=== PATIENT | male | born 1985 | race Hispanic/Latino ===

== ENCOUNTER 2017-10-28 00:57 | Inpatient (IN) | payer BC ==
[2017-10-28] MEDS ORDERED: NA CHLORIDE 0.9% 1,000 ML ONE ×2 (01:18→17:20)
[2017-10-28] MEDS ORDERED: PIPER/TAZO/NS 3.375gm 3.375 GM/100 ML BAG ONE ×2 (01:26→05:50)
[2017-10-28] MEDS ORDERED: PROMETHAZINE 25 MG/ML VIAL ONE (01:26)
[2017-10-28] MEDS ORDERED: FAMOTIDINE 20 MG/2 ML VIAL IV ONE ×2 (01:26→23:40)
[2017-10-28 01:35] LABS: Absolute Lymphocytes (CBC) 2.9 K/uL (0.7-4.9); Absolute Monocytes 0.6 K/uL (0.1-1.3); Absolute Neutrophil 7.6 K/uL (1.8-8.0); Basophils % 0.3 % (0-1.3); Eosinophils % 2.1 % (0-4.4); Lymphocytes % 25.7 % (15.3-44.8); MCH 28.5 pg (27.0-35.0); MCV 84.8 fL (80-100); Monocytes % 5.1 % (3.3-12.3); RBC Red Blood Cell Count 5.43 M/uL (4.33-5.43)
[2017-10-28] MEDS ORDERED: FENTANYL CITR 100 MCG/2 ML ONE (01:36)
[2017-10-28 01:46] LABS: Bicarbonate 26 mEq/L (21-31); Glucose Level 109 mg/dL (65-120); Lipase 20 U/L (22-51); Potassium 3.7 mEq/L (3.6-5.0); Sodium Level 134 mEq/L (135-145)
[2017-10-28 01:51] LABS: ALT/SGPT 26 IU/L (10-60); AST/SGOT 32 IU/L (10-42); Albumin 4.6 g/dL (3.2-5.5); Alkaline Phosphatase 70 IU/L (42-121); Amylase Level 34 U/L (28-100); BUN Blood Urea Nitrogen 21 mg/dL (6-20); Bilirubin Direct < 0.1 mg/dL (0-0.2); Protein, Total 7.9 g/dL (6.0-8.3)
--- NOTE | 2017-10-28 04:14 | ER ---
Nurse's Notes [facility] Name: Michael Henao Age: 32 yrs Sex: Male : 1985 Arrival Date: 10/28/2017 Time: 00:59 Bed 14 Private MD: Jose Guzmán R Diagnosis: Abdominal tenderness;Cholelithiasis;Cholecystitis Presentation: 10/28 01:20 Presenting complaint: Patient states: upper abd pain X1 day. pt denies vomiting. pt c/o ak1 nausea. Transition of care: patient was not received from another setting of care. Onset of symptoms was October 28, 2017. Initial Sepsis Screen: Does the patient meet any 2 criteria? No. Patient's initial sepsis screen is negative. Does the patient have a suspected source of infection? No. Patient's initial sepsis screen is negative. Note pt sent to restroom for UA unable to urinate at this time. Care prior to arrival: None. 01:20 Method Of Arrival: Ambulatory ak1 01:20 Acuity: AD 3 ak1 Triage Assessment: 01:20 General: Appears in no apparent distress. Behavior is calm, cooperative, texting and ak1 watching TV. Pain: Complains of pain in abdomen and left upper quadrant and right upper quadrant and epigastric area. EENT: No signs and/or symptoms were reported regarding the EENT system. Neuro: No deficits noted. Cardiovascular: No deficits noted. Respiratory: No deficits noted. GI: Abdomen is round Reports upper abdominal pain, nausea. : No signs and/or symptoms were reported regarding the genitourinary system. Derm: No signs and/or symptoms reported regarding the dermatologic system. Musculoskeletal: No signs and/or symptoms reported regarding the musculoskeletal system. Historical: - Allergies: 01:33 No Known Allergies; ak1 - Home Meds: 01:33 None [Active]; ak1 - PMHx: 01:33 None; ak1 - PSHx: 01:33 None; ak1 - Immunization history:: Adult Immunizations unknown. - Social history:: Smoking status: unknown. - Family history:: not pertinent. Screenin:23 Abuse screen: Denies threats or abuse. Denies injuries from another. Nutritional ak1 screening: No deficits noted. Tuberculosis screening: No symptoms or risk factors identified. Fall Risk None identified. Assessment: 01:30 GI: Bowel sounds present X 4 quads. Abdomen is tender to palpation in epigastric area, bs1 right upper quadrant and left upper quadrant. 03:30 Reassessment: Patient appears in no apparent distress at this time. Patient and/or bs1 family updated on plan of care and expected duration. Pain level reassessed. Patient is alert, oriented x 3, equal unlabored respirations, skin warm/dry/pink. Patient states feeling better. 05:03 Reassessment: Patient appears in no apparent distress at this time. Patient and/or bs1 family updated on plan of care and expected duration. Pain level reassessed. Patient is alert, oriented x 3, equal unlabored respirations, skin warm/dry/pink. Patient being admitted to 2nd floor, for Cholecystitis/cholelithiasis, consults with Dr Sethi, discussed with patient. Vital Signs: 01:20 BP 130 / 82; Pulse 60; Resp 16; Temp 98.5; Pulse Ox 99% on R/A; Weight 81.65 kg; Height ak1 5 ft. 8 in. (172.72 cm); Pain 5/10; 02:20 BP 116 / 77 (art line/); Pulse 61; Pulse Ox 96% on R/A; bs1 03:20 BP 122 / 84; Pulse 54; Resp 15 S; Pulse Ox 98% on R/A; bs1 04:20 BP 126 / 83; Pulse 60; Resp 16; Temp 98(O); Pulse Ox 100% on R/A; Pain 0/10; bs1 01:20 Body Mass Index 27.37 (81.65 kg, 172.72 cm) ak1 ED Course: 00:59 Patient arrived in ED. am2 00:59 Jose Guzmán MD is Private Physician. am2 01:03 Benji Ahn MD is Attending Physician. vandana 01:14 Rocio Patel, CAROLANN is Primary Nurse. bs1 01:20 No provider procedures requiring assistance completed. Initial lab(s) drawn, by me, ak1 sent to lab. Inserted saline lock: 20 gauge in right antecubital area, using aseptic technique. Blood collected. 01:20 Arm band placed on Patient placed in an exam room, on a stretcher, on pulse oximetry, ak1 Patient notified of wait time. 01:21 Triage completed. ak1 01:23 Patient has correct armband on for positive identification. Bed in low position. Call ak1 light in reach. Side rails up X 1. Pulse ox on. NIBP on. 03:06 CT Abd/Pelvis - W/Contrast In Process Unspecified. EDTX 04:13 Jose Guzmán MD is Hospitalizing Provider. [facility] 05:04 Patient admitted, IV remains in place. intact. bs1 Administered Medications: 01:20 Drug: NS 0.9% 1000 ml Route: IV; Rate: 1 bolus; Site: right antecubital; ak1 01:31 Drug: Pepcid 20 mg Route: IVP; Site: right antecubital; ak1 01:43 Follow up: Response: No adverse reaction bs1 01:31 Not Given (medication not found new orders from ERP): Zofran 4 mg IVP once; over 2 ak1 minutes 01:32 Drug: Phenergan 12.5 mg Route: IVP; Site: right antecubital; ak1 01:42 Follow up: Response: No adverse reaction bs1 01:35 Drug: Zosyn 3.375 grams Route: IVPB; Infused Over: 60 mins; Site: right antecubital; bs1 06:36 Follow up: IV Status: Completed infusion bs1 01:39 Drug: fentaNYL (PF) 50 mcg Route: IVP; Site: right antecubital; ak1 01:43 Follow up: Response: No adverse reaction bs1 Outcome: 04:14 Decision to Hospitalize by Provider. [facility] 04:58 Condition: stable bs1 05:04 Admitted to Med/surg accompanied by nurse, via wheelchair, room 220, with chart, Report bs1 called to Sneha/Tanya VUONG 05:04 Instructed on the need for admit. 05:05 Patient left the ED. bs1 Signatures: Dispatcher [employer] EDBenji Varghese MD MD cha Krenek, Amber RN RN ak1 Annabelle Harley Brittany, RN RN bs1
--- NOTE | 2017-10-28 04:15 | EDPHYS ---
Physician Documentation [facility] Name: Michael Henao Age: 32 yrs Sex: Male : 1985 Arrival Date: 10/28/2017 Time: 00:59 Bed 14 Private MD: Jose Guzmán R ED Physician Benji Ahn HPI: 10/28 01:10 This 32 yrs old Male presents to ER via Unassigned with complaints of vandana Abdominal Pain. 01:10 The patient presents with abdominal pain in the epigastric area, in the upper abdomen. vandana Onset: The symptoms/episode began/occurred just prior to arrival. The symptoms do not radiate. Associated signs and symptoms: none. The symptoms are described as constant, crampy. Severity of pain: At its worst the pain was moderate in the emergency department the pain is unchanged. The patient has not experienced similar symptoms in the past. Historical: - Allergies: 01:33 No Known Allergies; ak1 - Home Meds: 01:33 None [Active]; ak1 - PMHx: :33 None; ak1 - PSHx: 01:33 None; ak1 - Immunization history:: Adult Immunizations unknown. - Social history:: Smoking status: unknown. - Family history:: not pertinent. ROS: 01:10 Constitutional: Negative for fever, chills, and weight loss, Eyes: Negative for injury, vandana pain, redness, and discharge, ENT: Negative for injury, pain, and discharge, Neck: Negative for injury, pain, and swelling, Cardiovascular: Negative for chest pain, palpitations, and edema, Respiratory: Negative for shortness of breath, cough, wheezing, and pleuritic chest pain, Back: Negative for injury and pain, : Negative for injury, bleeding, discharge, and swelling, MS/Extremity: Negative for injury and deformity, Skin: Negative for injury, rash, and discoloration, Neuro: Negative for headache, weakness, numbness, tingling, and seizure, Psych: Negative for depression, anxiety, suicide ideation, homicidal ideation, and hallucinations, Allergy/Immunology: Negative for hives, rash, and allergies, Endocrine: Negative for neck swelling, polydipsia, polyuria, polyphagia, and marked weight changes, Hematologic/Lymphatic: Negative for swollen nodes, abnormal bleeding, and unusual bruising. 01:10 Abdomen/GI: Positive for abdominal pain, of the epigastric area, right upper quadrant and left upper quadrant. Exam: 01:10 Constitutional: This is a well developed, well nourished patient who is awake, alert, vandana and in no acute distress. Head/Face: Normocephalic, atraumatic. Eyes: Pupils equal round and reactive to light, extra-ocular motions intact. Lids and lashes normal. Conjunctiva and sclera are non-icteric and not injected. Cornea within normal limits. Periorbital areas with no swelling, redness, or edema. ENT: Nares patent. No nasal discharge, no septal abnormalities noted. Tympanic membranes are normal and external auditory canals are clear. Oropharynx with no redness, swelling, or masses, exudates, or evidence of obstruction, uvula midline. Mucous membranes moist. Neck: Trachea midline, no thyromegaly or masses palpated, and no cervical lymphadenopathy. Supple, full range of motion without nuchal rigidity, or vertebral point tenderness. No Meningismus. Chest/axilla: Normal chest wall appearance and motion. Nontender with no deformity. No lesions are appreciated. Cardiovascular: Regular rate and rhythm with a normal S1 and S2. No gallops, murmurs, or rubs. Normal PMI, no JVD. No pulse deficits. Respiratory: Lungs have equal breath sounds bilaterally, clear to auscultation and percussion. No rales, rhonchi or wheezes noted. No increased work of breathing, no retractions or nasal flaring. Back: No spinal tenderness. No costovertebral tenderness. Full range of motion. Male : Normal genitalia with no discharge or lesions. Skin: Warm, dry with normal turgor. Normal color with no rashes, no lesions, and no evidence of cellulitis. MS/ Extremity: Pulses equal, no cyanosis. Neurovascular intact. Full, normal range of motion. Neuro: Awake and alert, GCS 15, oriented to person, place, time, and situation. Cranial nerves II-XII grossly intact. Motor strength 5/5 in all extremities. Sensory grossly intact. Cerebellar exam normal. Normal gait. Psych: Awake, alert, with orientation to person, place and time. Behavior, mood, and affect are within normal limits. 01:10 Abdomen/GI: Inspection: abdomen appears normal, Bowel sounds: normal, Palpation: abdomen is soft and non-tender, Liver: no appreciated palpable abnormalities, Hernia: not appreciated. Vital Signs: 01:20 BP 130 / 82; Pulse 60; Resp 16; Temp 98.5; Pulse Ox 99% on R/A; Weight 81.65 kg; Height ak1 5 ft. 8 in. (172.72 cm); Pain 5/10; 02:20 BP 116 / 77 (art line/); Pulse 61; Pulse Ox 96% on R/A; bs1 03:20 BP 122 / 84; Pulse 54; Resp 15 S; Pulse Ox 98% on R/A; bs1 04:20 BP 126 / 83; Pulse 60; Resp 16; Temp 98(O); Pulse Ox 100% on R/A; Pain 0/10; bs1 01:20 Body Mass Index 27.37 (81.65 kg, 172.72 cm) ak1 MDM: 01:03 Patient medically screened. vandana 01:03 Patient medically screened. vandana 01:10 Data reviewed: vital signs, nurses notes, lab test result(s), radiologic studies, CT vandana scan. 10/28 01:05 Order name: Amylase, Serum; Complete Time: 01:59 [facility] 10/28 01:05 Order name: Basic Metabolic Panel; Complete Time: 01:59 [facility] 10/28 01:05 Order name: CBC with Diff; Complete Time: 01:39 [facility] 10/28 01:05 Order name: Creatinine for Radiology; Complete Time: 01:59 [facility] 10/28 01:05 Order name: Hepatic Function; Complete Time: 01:59 [facility] 10/28 01:05 Order name: Lipase; Complete Time: 01:59 [facility] 10/28 01:05 Order name: Urine Microscopic Only [facility] 10/28 03:46 Order name: Urine Dipstick--Ancillary (enter results) rg2 10/28 04:21 Order name: Basic Metabolic Panel EDMS 10/28 04:21 Order name: Basic Metabolic Panel EDMS 10/28 04:21 Order name: CBC with Automated Diff EDMS 10/28 04:21 Order name: CBC with Automated Diff EDMS 10/28 04:21 Order name: Lipase EDMS 10/28 04:21 Order name: Lipase EDMS 10/28 01:05 Order name: IV Saline Lock; Complete Time: 01:20 [facility] 10/28 01:05 Order name: Labs collected and sent; Complete Time: 01:20 [facility] 10/28 01:05 Order name: Urine Dipstick-Ancillary (obtain specimen); Complete Time: 03:53 [facility] 10/28 01:10 Order name: CT Abd/Pelvis - W/Contrast [facility] 10/28 04:21 Order name: CONS Physician Consult [facility] 10/28 04:21 Order name: NPO [facility] 10/28 04:21 Order name: Liver (Hepatic) Function [facility] 10/28 04:21 Order name: Liver (Hepatic) Function EDOH Administered Medications: 01:20 Drug: NS 0.9% 1000 ml Route: IV; Rate: 1 bolus; Site: right antecubital; ak1 01:31 Drug: Pepcid 20 mg Route: IVP; Site: right antecubital; ak1 01:43 Follow up: Response: No adverse reaction bs1 01:31 Not Given (medication not found new orders from ERP): Zofran 4 mg IVP once; over 2 ak1 minutes 01:32 Drug: Phenergan 12.5 mg Route: IVP; Site: right antecubital; ak1 01:42 Follow up: Response: No adverse reaction bs1 01:35 Drug: Zosyn 3.375 grams Route: IVPB; Infused Over: 60 mins; Site: right antecubital; bs1 06:36 Follow up: IV Status: Completed infusion bs1 01:39 Drug: fentaNYL (PF) 50 mcg Route: IVP; Site: right antecubital; ak1 01:43 Follow up: Response: No adverse reaction bs1 Disposition: 10/28/17 04:14 Hospitalization ordered by Jose Guzmán for Observation. Preliminary diagnosis are Abdominal tenderness, Cholelithiasis, Cholecystitis. - Bed requested for Telemetry/MedSurg (observation). - Status is Observation. bs1 - Condition is Stable. - Problem is new. - Symptoms have improved. UTI on Admission? No Signatures: Dispatcher [employer] EDOH Benji Ahn MD MD cha Krenek, Amber, RN RN ak1 Beth Diego, CAROLANN RN cg Rocio Patel, RN RN bs1 Corrections: (The following items were deleted from the chart) 04:25 04:14 Hospitalization Ordered by Jose Guzmán MD for Observation. Preliminary diagnosis cg is Abdominal tenderness; Cholelithiasis; Cholecystitis. Bed requested for Telemetry/MedSurg (observation). Status is Observation. Condition is Stable. Problem is new. Symptoms have improved. UTI on Admission? No. [facility] 05:05 04:25 10/28/2017 04:14 Hospitalization Ordered by Jose Guzmán MD for Observation. bs1 Preliminary diagnosis is Abdominal tenderness; Cholelithiasis; Cholecystitis. Bed requested for Telemetry/MedSurg (observation). Status is Observation. Condition is Stable. Problem is new. Symptoms have improved. UTI on Admission? No.
[2017-10-28] MEDS ORDERED: ACETAMINOPHEN 500 MG TAB PO PRN (04:17)
[2017-10-28] MEDS ORDERED: MORPHINE 4 MG/ML SYR IV PRN (04:17)
[2017-10-28] MEDS ORDERED: ONDANSETRON 4 MG/2 ML VIAL IV PRN (04:17)
[2017-10-28 04:24] LABS: Urine Bacteria <20 /HPF (NONE SEEN); Urine Culture Reflex Order NOT NEEDED; Urine RBC <5 /HPF (NONE SEEN)
[2017-10-28 05:24] LABS: Urine Blood NEGATIVE (NEG); Urine Glucose NEGATIVE (NEG); Urine Protein NEGATIVE (NEG)
[2017-10-28] MEDS: D5 0.45 NS 1,000 ML IV SCH ×3 (05:48→20:44)
[2017-10-28] MEDS ORDERED: PIPER/TAZO/NS 3.375gm 3.375 GM/100 ML BAG IVPB SCH (06:00)
[2017-10-28 06:12] VITALS: BMI 27.1
[2017-10-28 08:06] LABS: Urine Appearance CLEAR; Urine Bilirubin NEGATIVE (NEG); Urine Blood NEGATIVE (NEG); Urine Color YELLOW; Urine Glucose NEGATIVE (NEG); Urine Protein NEGATIVE (NEG); Urine Specific Gravity >=1.030 (1.005-1.030); Urine Urobilinogen 0.2 mg/dL (0.2-1.0); Urine pH 5.5 (5.0-7.0)
[2017-10-28 08:08] LABS: Urine Microscopic Reflex NO UMIC
--- NOTE | 2017-10-28 08:38 | RAD REPORT ---
EXAM DESCRIPTION: CTAbdomen Pelvis W Contrast - 10/28/2017 5:36 am CLINICAL HISTORY: Abdominal pain. COMPARISON: 12/29/2016 TECHNIQUE: Biphasic CT imaging of the abdomen and pelvis was performed with 100 ml non-ionic IV cont rast. All CT scans are performed using dose optimization technique as appropriate and may include automated exposure control or mA/KV adjustment according to patient size. FINDINGS: The lung bases are clear.Gallbladder appears distended. Gallstones are present. Mild peric holecystic fluid seen. The liver, spleen, pancreas, adrenal glands and kidneys are within normal limits. No bowel obstruction, free air, free fluid or abscess. The appendix is normal. No evidence of signi ficant lymphadenopathy. No suspicious bony findings. IMPRESSION: Cholelithiasis with mild pericholecystic fluid and gallbladder distention. Acute cholecy stitis is a possibility. Advise followup sonography for further assessment if clinically indicated.
[2017-10-28] MEDS: PIPER/TAZO/NS 3.375gm 3.375 GM/100 ML BAG IVPB SCH ×3 (09:16→17:38)
[2017-10-28] MEDS: FAMOTIDINE 20 MG/2 ML VIAL IV SCH ×2 (09:56→21:00)
[2017-10-28] MEDS: Morphine 2 MG/2 ML SYR IV PRN ×2 (10:03→20:53)
[2017-10-28] MEDS ORDERED: Ringers Lactate 1,000 ML IV ONE (16:33)
[2017-10-28] MEDS ORDERED: PROPOFOL 200 MG/20 ML VIAL IV ONE (16:46)
[2017-10-28] MEDS ORDERED: LIDOCAINE 2% MPF 5 ML VIAL ONE (16:46)
[2017-10-28] MEDS ORDERED: ROCURONIUM 50 MG/5 ML VIAL IV ONE (16:46)
[2017-10-28] MEDS ORDERED: FENTANYL CITR 250 MCG/5 ML ONE (16:47)
--- NOTE | 2017-10-28 17:25 | P.HP ---
Date of Service: 10/28/17 PC: This 32-year-old male presents emergency room with severe right upper quadrant abdominal pain for diagnosis and treatment. HPC: Patient has been having episodes of right upper quadrant abdominal pain in the past. Had 1 workup which revealed he had gallstones. Last night attack was very severe, radiating to his back, was unrelenting. He had to come to the emergency room. PMH: Negative PSHx: Negative SOC: No known allergies SYS REVIEW: No cough, wheeze, shortness of breath. No chest pain or palpitations. No change in bowel habit. Weight has been steady, good exercise tolerance. O/E awake alert vital signs are stable HEENT: Not icteric Chest: Clear ABD: Tender in the right upper quadrant LOCO: Intact DATA: Documented gallstone IMPRESSION: Cholecystitis with cholelithiasis PLAN: I will take him to the operating room for laparoscopic possible open cholecystectomy with intraoperative cholangiogram. The risks of this procedure have been discussed. The possibility of bleeding, infection, injury to bile ducts blood vessels and intestines has been described. The possible need for an open and/or further surgeries and procedures was discussed with him in his . They understand and want to proceed.
[2017-10-28] MEDS ORDERED: KETOROLAC 30 MG/ML INJ ONE (17:40)
[2017-10-28] MEDS ORDERED: DEXAMETHASONE 10 MG/ML VIAL ONE (17:40)
[2017-10-28] MEDS ORDERED: ONDANSETRON 4 MG/2 ML VIAL ONE (17:44)
[2017-10-28] MEDS ORDERED: GLYCOPYRROLATE 0.2 MG/ML SYR ONE (17:59)
[2017-10-28] MEDS ORDERED: NEOSTIGMINE 1 MG/ML -5 ML SYRINGE ONE (17:59)
--- NOTE | 2017-10-28 18:18 | P.OP ---
Preoperative diagnosis: Acute on chronic cholecystitis with cholelithiasis Postoperative diagnosis: The same Primary procedure: Laparoscopic cholecystectomy Secondary procedure: Intraoperative cholangiogram Anesthesia: Genera Estimated blood loss: Less than 10 cc Specimen: 1 gallbladder Operative Technique: The patient brought the operating room and placed supine on the table. After the induction of adequate general endotracheal anesthesia, the area of the abdomen was prepped with a DuraPrep solution, and he was draped in usual aseptic manner. As subumbilical incision was made. This brought down through the skin and subcutaneous tissue. Port was used to enter the peritoneal cavity and created pneumoperitoneum to approximately 12 mm of mercury. Under direct vision a 5 mm trocar was placed in the upper midline, and 2 other 5 mm trocars on the right lateral side of the abdomen. We were now able to visualize the right upper quadrant after having place patient in reverse Trendelenburg with a rolled to the left. A distended and acutely inflamed gallbladder was noted. There was quite a lot of edema in the wall. An aspirating need needle was used to remove the contents of the gallbladder. A grasper was now placed on the fundus. Another 1 down while Hoda's pouch. Applying lateral traction we were able to dissect down and expose the cystic duct and artery. Having obtained the critical view, a clip was placed between the gallbladder and the cystic duct. An opening was made into the cystic duct through which we obtained a normal intraoperative cholangiogram. The cholangiogram demonstrated good flow of contrast into the duodenum, no other filling defects were noted. At this point the catheter was removed. Clips were placed on the distal portion of the cystic duct. The artery was clipped and divided in the usual manner as well. The gallbladder was now dissected free from the liver bed, placed into an Endo- Catch, and brought out through the umbilical trocar site. At this point the abdomen is inspected to ensure adequate hemostasis. The irrigating fluid was aspirated from the right upper quadrant after having place the patient back in neutral position on the OR table. The umbilical trocar site was approximated with 2 sutures of absorbable material placed using the Endo Close to secure the umbilical fascia. The pneumoperitoneum was now collapsed, the sutures tied, and zheng applied to the skin. At the end of the procedure he was in a stable condition when sent to the recovery room. Needle sponge instrument count were correct. No drains were played. 1 specimen was sent for histopathology. Complications: None Transferred to: Recovery Room Condition: Good
[2017-10-28] MEDS: HYDROMORPHONE HCL 2 MG/ML inj ONE ×4 (18:34→18:49)
--- NOTE | 2017-10-28 19:04 | RAD REPORT ---
EXAM DESCRIPTION: RADCholangiogram Oper-Xray Or10/28/2017 6:49 pm CLINICAL HISTORY: Abdominal pain FINDINGS: The examination was performed by Dr. Sethi. The cystic duct was cannulated and contrast administered. Contrast flowed into the duodenum. The biliary tree is normal caliber without a filling defect seen.
[2017-10-29 00:19] VITALS: O2SAT 96
[2017-10-29] MEDS: Morphine 2 MG/2 ML SYR IV PRN (01:07)
[2017-10-29] MEDS: PIPER/TAZO/NS 3.375gm 3.375 GM/100 ML BAG IVPB SCH ×2 (01:08→10:00)
--- NOTE | 2017-10-29 03:13 | HP ---
Date of Admission: 10/28/2017 Chief Complaint: Right upper quadrant pain. History Of Present Illness: A 32-year-old male who was having intermittent right upper quadrant pain on the night of admission. The patient was brought to the ER because of continued pain and nausea. CT scan showed evidence of cholelithiasis and pericholecystic fluid. Based on this, the patient is admitted with a diagnosis of acute cholecystitis. There is no history of vomiting of blood or other symptoms. Past Medical History: Essentially negative. No history of diabetes, hypertension or chronic illness . Family History: Noncontributory. Personal History: No home medications. Review of Systems: No chest pain. Physical Examination: General: Revealed a 32-year-old male, in [id number] pain. Afebrile. HEENT: Negative. Neck: Supple. JVD negative. Chest: Clear. Heart: Regular. Abdomen: Right upper quadrant tenderness. Bowel sounds present. Extremities: No edema. Neurological: Negative. Laboratory Data: White count 11.3. CAT scan of the abdomen, evidence of gallstones and fluid around the gallbladder. Assessment: Acute cholecystitis. Plan: IV fluids, IV antibiotics. Dr. Sethi consult. BURTON/AMELIE Voice ID: [id number]
[2017-10-29] MEDS: D5 0.45 NS 1,000 ML IV SCH ×2 (05:29→13:00)
[2017-10-29] MEDS: FAMOTIDINE 20 MG/2 ML VIAL IV SCH (09:00)
[2017-10-29 16:46] VITALS: BP 114/67; TEMP 98.5
== END 2017-10-29 13:50 | disposition home or self-care (01) | DRG 419 ==
LOC: ER 00:57 → 2ND 04:38 → OBSVTOIN 10:12
PROVIDERS: ADMIT Internal Medicine; ATTEND Internal Medicine
PROC: BF03YZZ Plain Radiography of Gallbladder and Bile Ducts using Other Contrast (ICD-10-PCS; 2017-10-28)
PROC: 0FT44ZZ Resection of Gallbladder, Percutaneous Endoscopic Approach (ICD-10-PCS; principal; 2017-10-28 16:24)
DX: K80.12 Calculus of gallbladder with acute and chronic cholecystitis without obstruction (principal)
CPT/HCPCS: 36415; 74177; 74300; 80048; 80076; 81003; 81015; 82150; 83690; 85025; 88304; 96365; 96366; 96375; 99285; G0378; J1100; J1170; J2270; J2405; J2543; J2550; J2710; J3010; J7030; Q9967

== ENCOUNTER 2019-01-24 14:38 | Emergency (ER) | payer BC ==
[2019-01-24 15:13] LABS: Absolute Lymphocytes (CBC) 2.2 K/uL (0.7-4.9); Basophils % 0.2 % (0-1.3); Hematocrit 44.3 % (39.6-49.0); Lymphocytes % 30.5 % (15.3-44.8); MPV 8.7 fL (7.6-11.3); RBC Red Blood Cell Count 5.14 M/uL (4.33-5.43)
[2019-01-24] MEDS ORDERED: NA CHLORIDE 0.9% 1,000 ML ONE (15:18)
[2019-01-24 15:29] LABS: Protime INR 1.13
[2019-01-24 15:35] LABS: ALT/SGPT 42 U/L (12-78); AST/SGOT 26 U/L (15-37); Albumin 4.1 g/dL (3.4-5.0); Alkaline Phosphatase 72 U/L (45-117); BUN Blood Urea Nitrogen 11 mg/dL (7-18); Bicarbonate 25 mmol/L (21-32); Bilirubin Direct 0.1 mg/dL (0-0.2); Bilirubin Total 0.3 mg/dL (0.2-1.0); Glucose Level 133 mg/dL (74-106); Potassium 3.8 mmol/L (3.5-5.1); Sodium Level 144 mmol/L (136-145)
--- NOTE | 2019-01-24 15:52 | EDPHYS ---
Physician Documentation [facility] Name: Michael Henao Age: 33 yrs Sex: Male : 1985 Arrival Date: 01/24/2019 Time: 14:39 Bed 7 Private MD: ED Physician Omid Vieira HPI: 01/24 15:05 This 33 yrs old Male presents to ER via EMS with complaints of ETOH Abuse. cp 15:05 The patient presents to the emergency department with a history of substance abuse. cp 15:05 Onset: The symptoms/episode began/occurred today. Past psychiatric history: Prior cp diagnosis: no previous psychiatric diagnosis known, Psychiatric medications include: none. Associated signs and symptoms: Pertinent positives; self inflicted lacerations to right forearm, Pertinent negatives: hallucinations, homicidal ideation, suicide ideation. Patient brought to ED via EMS and accompanied by law enforcement after sending pictures to girlfriend of self inflicted lacerations to right forearm today. Law enforcement report patient is under arrest for resisting arrest. Historical: - Allergies: 14:47 NKA; iw - Home Meds: 14:47 None [Active]; iw - PMHx: 14:47 None; iw - PSHx: 14:47 None; iw - Ebola Screening: : Patient negative for fever greater than or equal to 101.5 degrees Fahrenheit, and additional compatible Ebola Virus Disease symptoms Patient denies exposure to infectious person Patient denies travel to an Ebola-affected area in the 21 days before illness onset No symptoms or risks identified at this time. ROS: 15:10 Constitutional: Negative for fever, poor PO intake. cp 15:10 Cardiovascular: Negative for chest pain. cp 15:10 Respiratory: Negative for cough, shortness of breath, wheezing. 15:10 Abdomen/GI: Negative for abdominal pain, nausea, vomiting, and diarrhea. 15:10 Neuro: Negative for altered mental status, headache, weakness. 15:10 Psych: Positive for alcohol intoxication, Negative for auditory hallucinations, visual hallucinations, homicidal ideation, suicide gesture, suicidal ideation. 15:10 All other systems are negative. Exam: 15:15 ECG was reviewed by the Attending Physician. cp 15:18 Constitutional: The patient appears in no acute distress, alert, awake, cp non-diaphoretic, non-toxic, well developed, well nourished. 15:18 Head/Face: Normocephalic, atraumatic. cp 15:18 Eyes: Periorbital structures: appear normal, Pupils: equal, round, and reactive to cp light and accomodation, Conjunctiva: normal, no exudate, no injection, Lids and lashes: appear normal, bilaterally. 15:18 ENT: External ear(s): are unremarkable, Nose: is normal, Mouth: Lips: moist, Oral cp mucosa: moist, Posterior pharynx: Airway: no evidence of obstruction, patent. 15:18 Chest/axilla: Inspection: normal, Palpation: is normal, no crepitus, no tenderness. 15:18 Cardiovascular: Rate: tachycardic, Rhythm: regular. 15:18 Respiratory: the patient does not display signs of respiratory distress, Respirations: normal, no use of accessory muscles, no retractions, no splinting, no tachypnea, labored breathing, is not present, Breath sounds: are clear throughout, no decreased breath sounds, no stridor, no wheezing. 15:18 Abdomen/GI: Inspection: abdomen appears normal, Palpation: abdomen is soft and non-tender, in all quadrants, involuntary guarding, is not appreciated. 15:18 Skin: injury, laceration(s), that can be described as linear, without bleeding, multiple and superficial to right forearm. 15:18 Neuro: Orientation: to person, place \T\ time. Mentation: able to follow commands, Motor: moves all fours, strength is normal. 15:18 Psych: Behavior/mood is cooperative, Affect is calm, Oriented to person, place, time, Patient has no thoughts/intents to harm self or others. Judgement / Insight is impaired. Delusions/hallucinations are not present. Vital Signs: 14:30 BP 126 / 84; Pulse 92; Resp 16; Temp 97.3; Pulse Ox 100% ; Weight 86.18 kg; Height 5 iw ft. 8 in. (172.72 cm); Pain 0/10; 15:05 BP 121 / 84; Pulse 100; Resp 16; Pulse Ox 98% ; bp 15:55 BP 124 / 82; Pulse 96; Resp 16; Temp 97.3; Pulse Ox 99% ; bp 14:30 Body Mass Index 28.89 (86.18 kg, 172.72 cm) iw MDM: 15:04 Patient medically screened. cp 15:05 Differential diagnosis: drug withdrawal. acute psychotic break, depression, psychosis cp secondary to non-compliance. 15:50 Data reviewed: vital signs, nurses notes, EKG, I have discussed the patient's cp presentation/case with the attending Emergency Department Physician; and as a result, I will discharge patient. 15:50 Test interpretation: by ED physician or midlevel provider: ECG. Counseling: I had a cp detailed discussion with the patient and/or guardian regarding: the historical points, exam findings, and any diagnostic results supporting the discharge/admit diagnosis. ED course: VSS. Patient under arrest and denies any suicidal or homicidal ideations. Will discharge into custody of law enforcement. 01/24 14:57 Order name: Acetaminophen bp 01/24 14:57 Order name: Basic Metabolic Panel bp 01/24 14:57 Order name: CBC with Diff bp 01/24 14:57 Order name: ETOH Level bp 01/24 14:57 Order name: Hepatic Function bp 01/24 14:57 Order name: PT-INR bp 01/24 14:57 Order name: Ptt, Activated bp 01/24 14:57 Order name: Salicylate bp 01/24 14:57 Order name: EKG; Complete Time: 14:58 bp 01/24 14:57 Order name: EKG - Nurse/Tech; Complete Time: 15:12 bp 04 14:57 Order name: IV Saline Lock; Complete Time: 15:04 bp 04 14:57 Order name: Labs collected and sent; Complete Time: 15:04 bp EC:15 Rate is 88 beats/min. Rhythm is regular. MA interval is normal. QRS interval is normal. cp QT interval is normal. Interpreted by me. Reviewed by me. Administered Medications: 15:20 Drug: NS 0.9% 1000 ml Route: IV; Rate: 1 bolus; Site: right antecubital; bp 15:56 Follow up: Response: No adverse reaction bp Disposition: 16:15 Chart complete. cp 17:13 Co-signature as Attending Physician, Omid Vieira MD. rn Disposition: 01/24/19 15:51 Discharged to Home. Impression: Alcohol abuse with intoxication, Laceration without foreign body of right forearm - superficial. - Condition is Stable. - Discharge Instructions: Alcohol Intoxication, Laceration Care, Adult, Alcohol Abuse and Nutrition. - Medication Reconciliation Form, Thank You Letter, Antibiotic Education, Prescription Opioid Use form. - Follow up: Emergency Department; When: As needed; Reason: Worsening of condition. - Problem is new. - Symptoms have improved. Signatures: Dispatcher [employer] EDAnnabelle Ko RN RN aj Williams, Irene, RN RN iw Nieto, Roman, MD MD rn Page, Corey, GINNY PA Nadeem Adame RN RN bp Corrections: (The following items were deleted from the chart) 15:56 15:51 01/24/2019 15:51 Discharged to Home. Impression: Alcohol abuse with intoxication; aj Laceration without foreign body of right forearm - superficial. Condition is Stable. Forms are Medication Reconciliation Form, Thank You Letter, Antibiotic Education, Prescription Opioid Use. Follow up: Emergency Department; When: As needed; Reason: Worsening of condition. Problem is new. Symptoms have improved. cp
--- NOTE | 2019-01-24 15:52 | ER ---
Nurse's Notes [facility] Name: Michael Henao Age: 33 yrs Sex: Male : 1985 Arrival Date: 01/24/2019 Time: 14:39 Bed 7 Private MD: Diagnosis: Alcohol abuse with intoxication;Laceration without foreign body of right forearm-superficial Presentation: 01/24 14:30 Presenting complaint: EMS states: pt got into verbal altercation with significant iw other, sent pictures of himself cutting his RFA with a knife, pt has been drinking heavily today, denies drug use, pt A\\T\\OX3, pt in police custody at this time. Transition of care: patient was not received from another setting of care. Onset of symptoms was January 24, 2019. Risk Assessment: Do you want to hurt yourself or someone else? Other: pt denies wanting to kill himself, he cut himself because he was upset, has previous history if cutting. Initial Sepsis Screen: Does the patient meet any 2 criteria? No. Patient's initial sepsis screen is negative. Does the patient have a suspected source of infection? No. Patient's initial sepsis screen is negative. Care prior to arrival: IV initiated. 18 GA, in the left antecubital area, Glucose check: 130. 14:30 Method Of Arrival: EMS: [facility] iw 14:30 Acuity: AD 2 iw Triage Assessment: 14:30 General: Appears in no apparent distress. comfortable, Behavior is agitated, anxious. bp General: Smells of alcohol. Pain: Denies pain. EENT: No deficits noted. Neuro: No deficits noted. Cardiovascular: No deficits noted. Respiratory: No deficits noted. GI: No signs and/or symptoms were reported involving the gastrointestinal system. : No signs and/or symptoms were reported regarding the genitourinary system. Derm: No deficits noted. Musculoskeletal: No deficits noted. Historical: - Allergies: 14:47 NKA; iw - Home Meds: 14:47 None [Active]; iw - PMHx: 14:47 None; iw - PSHx: 14:47 None; iw - Ebola Screening: : Patient negative for fever greater than or equal to 101.5 degrees Fahrenheit, and additional compatible Ebola Virus Disease symptoms Patient denies exposure to infectious person Patient denies travel to an Ebola-affected area in the 21 days before illness onset No symptoms or risks identified at this time. Screenin:06 Abuse screen: Denies threats or abuse. Denies injuries from another. Nutritional bp screening: No deficits noted. Tuberculosis screening: No symptoms or risk factors identified. Fall Risk None identified. Assessment: 14:30 General: SEE TRIAGE NOTE. bp 15:10 Reassessment: Patient denies suicidal or homicidal ideations. Denies hallucinations. aj Patient reports he self inflicted the small superficial lacerations noted to right forearm. Denies trying to hurt himself. States "I did it because I was mad at my .". 15:55 Reassessment: PT D/C WITH [employer], DX WITH ETOH ABUSE AND SUPERFICIAL LACERATION. bp Vital Signs: 14:30 BP 126 / 84; Pulse 92; Resp 16; Temp 97.3; Pulse Ox 100% ; Weight 86.18 kg; Height 5 iw ft. 8 in. (172.72 cm); Pain 0/10; 15:05 BP 121 / 84; Pulse 100; Resp 16; Pulse Ox 98% ; bp 15:55 BP 124 / 82; Pulse 96; Resp 16; Temp 97.3; Pulse Ox 99% ; bp 14:30 Body Mass Index 28.89 (86.18 kg, 172.72 cm) iw ED Course: 14:30 Safety checks: Items removed: yes. Door open/sign placed on door: yes. Family/friend dh3 present: no. Sitter present: Yes. 14:39 Patient arrived in ED. iw 14:45 Safety checks: Items removed: yes. Door open/sign placed on door: yes. Family/friend dh3 present: no. Sitter present: Yes. 14:46 Triage completed. iw 14:47 Maintain EMS IV. Dressing intact. Good blood return noted. Site clean \\T\\ dry. Gauge \\T\\ iw site: 18 LAC. 14:48 Benji Bahena PA is PHCP. cp 14:48 Omid Vieira MD is Attending Physician. cp 14:56 Nadeem Guerrero, CAROLANN is Primary Nurse. bp 14:58 Initial lab(s) drawn, by me, sent to lab. dh3 15:06 Patient has correct armband on for positive identification. Bed in low position. Call bp light in reach. Side rails up X2. [place] [employer] AT B/S. 15:12 EKG done, by ED staff, reviewed by Benji GROSS. [facility] 15:24 Wound care: to abrasion, located on left hand. [facility] 15:24 Dressings: Kerlix non-adherent dressing x 1 dorsal aspect of right forearm , triple 3 antibiotic ointment. Wound care: to abrasion, located on face. Wound care: cleaned wounds with chlorhexidine and normal saline. Wound care: to laceration located on dorsal aspect of right forearm. Administered Medications: 15:20 Drug: NS 0.9% 1000 ml Route: IV; Rate: 1 bolus; Site: right antecubital; bp 15:56 Follow up: Response: No adverse reaction bp Outcome: 15:51 Discharge ordered by MD. cp 15:55 Discharged to Law Enforcement 15:55 Condition: good 15:55 Discharge instructions given to police, Instructed on discharge instructions, follow up and referral plans. Demonstrated understanding of instructions, follow-up care. 15:56 Patient left the ED. aj Signatures: Annabelle Calvillo, RN RN Priya Mcguire, RN RN Benji Castrejon PA PA cp Herrera, Deanna [facility] Nadeem Guerrero, RN RN bp Corrections: (The following items were deleted from the chart) 15:01 14:30 Risk Assessment: Do you want to hurt yourself or someone else? Patient reports iw desire/thoughts of hurting themselves or someone else. Provider notified. 15:29 15:23 Wound care: to laceration located on dorsal aspect of right forearm [place] [id number] 15:29 15:24 Wound care: to abrasion, located on left hand [place] [id number] 15:29 15:25 Wound care: to abrasion, located on face [place] [id number] 15:29 15:27 Wound care: cleaned wounds with chlorhexidine and normal saline [place] [id number] 15:29 15:27 Dressings: Kerlix non-adherent dressing x 1 dorsal aspect of right forearm , 3 triple antibiotic ointment 3
[2019-01-24 16:06] VITALS: BP 124/82; TEMP 97.3; O2SAT 99
--- NOTE | 2019-01-25 07:44 | EKG ---
Test Date: 2019-01-24 Test Time: 15:08:39 Medical Receptionist Biller: SERENA MEASUREMENT RESULTS: Intervals: Rate: 88 AK: 162 QRSD: 88 QT: 364 QTc: 440 [place]: P: 57 AK: 162 QRS: 24 T: 30 INTERPRETIVE STATEMENTS: Normal sinus rhythm Normal ECG Compared to ECG 12/29/2016 06:39:44 Sinus bradycardia no longer present Electronically Signed On 01-25-19 07:42:44 CDT by Brad Abarca
== END 2019-01-24 15:56 | disposition home or self-care (01) ==
LOC: ER 14:38
DX: F10.129 Alcohol abuse with intoxication, unspecified (principal); S51.811A Laceration without foreign body of right forearm, initial encounter; X78.9XXA Intentional self-harm by unspecified sharp object, initial encounter
CPT/HCPCS: 93005; 85025; 80048; 36415; 80320; 80329 ×2; 85610; 80076; 85730; 99284; J7030